=== PATIENT | female | born 1985 | race Caucasian/White ===

== ENCOUNTER 2020-05-21 06:51 | Inpatient (IN) | payer MEDICAID ==
[2020-05-21] MEDS ORDERED: Misoprostol 50 MCG (1/2 of 100 MCG) Tab VAG ONE (06:54)
[2020-05-21] MEDS ORDERED: Methylergonovine 0.2 MG/1 ML Amp IM PRN (08:16)
[2020-05-21] MEDS ORDERED: Misoprostol 200 MCG Tab RECTAL PRN (08:16)
[2020-05-21] MEDS ORDERED: Sodium Chloride 0.9% 10 ML Syringe FLUSH PRN (08:16)
[2020-05-21] MEDS ORDERED: ePHEDrine 50 MG/ML SDV IVPUSH PRN (08:20)
[2020-05-21] MEDS ORDERED: Lactated Ringers 1,000 ML IV ONE (08:20)
--- NOTE | 2020-05-21 08:28 | PCM.LDHP ---
L&D History of Present Illness - General Date of Service: 05/21/20 Admit Problem/Dx: Patient Status Order with Admit Dx/Problem 05/21/20 08:16 Patient Status [ADT] Routine Admission Diagnosis/Problem Admission Diagnosis/Problem Term Source of Information: Patient History Limitations: Reports: No Limitations - History of Present Illness Introduction:: 05/21/20 35 yo is here at 39 3/7 for planned induction of labor due to mild polyhydramnios. She is B pos, rubella immune, STI's all negative. Starting hgb 14.6. Category 1 tracing and BPP 8/8. PABLO 25. She is GBS negative. She is planning an epidural. She has had an uncomplicated other than the polyhydramnios diagnosed in the third trimester. She is having intermittent contractions that she does not feel, no leaking of fluid. Plan is to use pitocin for induction due to a ripe cervix. Timing/Duration: Reports: intermittent - Related Data Allergies/Adverse Reactions: Allergies Allergy/AdvReac Type Severity Reaction Status Date / Time No Known Allergies Allergy Verified 05/21/20 07:01 Home Medications: Home Meds Omeprazole 20 mg PO DAILY 04/24/20 [History] Vit #116/Iron/FA/Dha [ Formula-Dha Softgel] 1 cap PO DAILY 04/24/20 [History] Past Medical History [employer] History: Reports: : 1 Para: 0 LMP (Approximate): Social & Family History - Tobacco Use Smoking Status *Q: Never Smoker - Caffeine Use Caffeine Use: Reports: None - Recreational Drug Use Recreational Drug Use: No H&P Review of Systems - Review of Systems: Review Of Systems: See Below General: Reports: No Symptoms HEENT: Reports: No Symptoms Pulmonary: Reports: No Symptoms Cardiovascular: Reports: No Symptoms Gastrointestinal: Reports: No Symptoms Genitourinary: Reports: No Symptoms Musculoskeletal: Reports: No Symptoms Skin: Reports: No Symptoms Psychiatric: Reports: No Symptoms Neurological: Reports: No Symptoms Hematologic/Lymphatic: Reports: No Symptoms Immunologic: Reports: No Symptoms L&D Exam - Exam Exam: See Below - Vital Signs Vital Signs: Last Vital Signs Temp 37.0 C 05/21/20 07:22 Pulse 125 H 05/21/20 07:22 Resp 18 05/21/20 07:22 BP 131/69 05/21/20 07:22 Pulse Ox 94 L 05/21/20 07:22 Weight: 105.7 kg - OB Specific Contraction Intensity: Mild Movement: Active Heart Tones: Present Heart Tones per Min: 150 Heart Rate (FHR) Variability: Moderate (6-25 bmp) Presentation: Vertex Estimated Weight: 8 lb - Wood Score Wood Score Cervix Position: Midposition Wood Score Consistency: Soft Wood Score Effacement: 51-70% Wood Score Dilation: 3-4 cm Wood Score 's Station: -2 Wood Score Total: 8 - Exam General: Alert, Oriented HEENT: PERRLA, Conjunctiva Clear, EACs Clear, EOMI, Hearing Intact, Mucosa Moist & [place], Nares Patent, Normal Nasal Septum, Pupils Equal, Pupils Reactive Neck: Supple, Trachea Midline Lungs: Clear to Auscultation, Normal Respiratory Effort Cardiovascular: Regular Rate, Regular Rhythm GI/Abdominal Exam: Normal Bowel Sounds, Soft, Non-Tender, No Organomegaly, No Distention, No Abnormal Bruit, No Mass, Pelvis Stable Rectal Exam: Normal Exam, Normal Rectal Tone Genitourinary: Normal external exam, Normal bimanual exam, Cervical dilitation, Enlarged uterus. No: Vaginal bleeding Back Exam: Normal Inspection, Full Range of Motion Extremities: Normal Inspection, Normal Range of Motion, Non-Tender, No Pedal Edema, Normal Capillary Refill Skin: Warm, Dry, Intact Neurological: Cranial Nerves Intact, Reflexes Equal Bilateral Psychiatric: Alert, Normal Affect, Normal Mood - Patient Data Lab Results Last 24 hrs: Laboratory Results - last 24 hr 05/21/20 05/21/20 Range/Units 07:00 07:07 WBC 10.1 (4.5-11.0) K/uL RBC 5.09 (3.30-5.50) M/uL Hgb 14.6 (12.0-15.0) g/dL Hct 44.1 (36.0-48.0) % MCV 87 (80-98) fL MCH 29 (27-31) pg MCHC 33 (32-36) % Plt Count 230 (150-400) K/uL Neut % (Auto) 76 H (36-66) % Lymph % (Auto) 16 L (24-44) % [place] % (Auto) 7 H (2-6) % Eos % (Auto) 1 L (2-4) % Baso % (Auto) 0 (0-1) % Urine Color Yellow (YELLOW) Urine Appearance Cloudy A (CLEAR) Urine pH 7.0 (5.0-8.0) Ur Specific [place] 1.025 (1.008-1.030) Urine Protein Negative (NEGATIVE) mg/dL Urine Glucose (UA) Negative (NEGATIVE) mg/dL Urine Ketones Negative (NEGATIVE) mg/dL Urine Occult Blood Negative (NEGATIVE) Urine Nitrite Negative (NEGATIVE) Urine Bilirubin Negative (NEGATIVE) Urine Urobilinogen 0.2 (0.2-1.0) EU/dL Ur Leukocyte Esterase Moderate H (NEGATIVE) Urine RBC 0-5 (0-5) Urine WBC 5-10 H (0-5) Ur Epithelial Cells Moderate Amorphous Sediment Few Urine Bacteria Few Urine Mucus Occasional Result Diagrams: 05/21/20 07:07 - Problem List (1) Polyhydramnios affecting in third trimester SNOMED Code(s): 578671932, 006840962 ICD Code: O40.3XX0 - POLYHYDRAMNIOS, THIRD TRIMESTER, NOT APPLICABLE OR UNSP Status: Acute Current Visit: Yes (2) Term SNOMED Code(s): 27516412 ICD Code: Z34.90 - ENCNTR FOR SUPRVSN OF NORMAL , UNSP, UNSP TRIMESTER Status: Acute Current Visit: Yes (3) Encounter for induction of labor SNOMED Code(s): 282798011 ICD Code: Z34.90 - ENCNTR FOR SUPRVSN OF NORMAL , UNSP, UNSP TRIMESTER Status: Acute Current Visit: Yes Problem List Initiated/Reviewed/Updated: Yes Orders Last 24hrs: Active Orders 24 hr Category Date Time Status Patient Status [ADT] Routine ADT 05/21/20 08:16 Ordered Communication Order [RC] ASDIRECTED Care 05/21/20 08:16 Ordered Communication Order [RC] ASDIRECTED Care 05/21/20 08:21 Ordered Heart Tones [RC] PER UNIT ROUTINE Care 05/21/20 08:16 Ordered Non Stress Test [RC] Click to Edit Care 05/21/20 08:16 Ordered Insert Urinary Catheter [OM.PC] ASDIRECTED Care 05/21/20 08:30 Ordered Local Anesthetic Infusion Pump [RC] ASDIRECTED Care 05/21/20 08:21 Ordered Notify Provider Vital Signs [RC] PRN Care 05/21/20 08:18 Ordered Notify Provider [RC] PRN Care 05/21/20 08:16 Ordered PCEA Epidural [RC] ASDIRECTED Care 05/21/20 08:21 Ordered PCEA Epidural [RC] ASDIRECTED Care 05/21/20 08:21 Ordered Up ad Fabienne [RC] ASDIRECTED Care 05/21/20 08:16 Ordered Urinary Catheter Assessment [RC] ASDIRECTED Care 05/21/20 08:21 Ordered VTE/DVT Education [RC] Click to Edit Care 05/21/20 08:18 Ordered Vital Signs [RC] PER UNIT ROUTINE Care 05/21/20 08:16 Ordered Clear Liquid Diet [DIET] Diet 05/21/20 Breakfast Ordered BPP w NST [US] Routine Exams 05/21/20 06:54 Taken Lactated Ringers [Ringers, Lactated] 1,000 ml Med 05/21/20 08:20 Ordered IV .BOLUS Methylergonovine [Methergine] Med 05/21/20 08:16 Ordered 0.2 mg IM ONETIME PRN Oxytocin/Normal Saline [Pitocin in NS 20 Units/1,000 ML Med 05/21/20 08:30 Ordered ] 20 unit in 1,000 ml IV TITRATE Sodium Chloride 0.9% [Saline Flush] Med 05/21/20 08:16 Ordered 10 ml FLUSH ASDIRECTED PRN ePHEDrine [ePHEDrine sulfate] Med 05/21/20 08:20 Ordered 10 mg IVPUSH ASDIRECTED PRN miSOPROStoL [Cytotec] Med 05/21/20 08:16 Ordered 800 mcg RECTAL ONETIME PRN DVT/VTE Prophylaxis Reflex [OM.PC] Routine Oth 05/21/20 08:16 Ordered Epidural Catheter Management [OM.PC] Urgent Oth 05/21/20 08:21 Ordered Saline Lock Insert [OM.PC] Routine Oth 05/21/20 08:16 Ordered Resuscitation Status Routine Resus Stat 05/21/20 08:16 Ordered Medication Orders Ephedrine Sulfate (Ephedrine Sulfate) 10 mg IVPUSH ASDIRECTED PRN PRN Reason: Hypotension Lactated Ringer's (Ringers, Lactated) 1,000 mls @ 999 mls/hr IV .BOLUS ONE Stop: 05/21/20 09:20 Methylergonovine Maleate (Methergine) 0.2 mg IM ONETIME PRN PRN Reason: Other Misoprostol (Cytotec) 800 mcg RECTAL ONETIME PRN PRN Reason: Other Sodium Chloride (Saline Flush) 10 ml FLUSH ASDIRECTED PRN PRN Reason: Keep Vein Open Assessment/Plan Comment:: 05/21/20 Assessment: 35 yo here for planned induction of labor at 39 3/7 weeks for mild polyhydramnios Hgb 14.6 PABLO approx 25 SVE /-2 Plan: Risks of polyhydramnios are reviewed with patient including prolapsed cord risk with ROM Plan will be to do Pitocin induction and leave membranes intact until head is applied to cervix If SROM nurse to check right away Anticipate Surgery crew is in house today and are aware of the induction
--- NOTE | 2020-05-21 11:53 | US ---
BPP w NST INDICATION: polyhydraminos COMPARISON: None FINDINGS: Single live IUP in vertex position heart rate: 150 BPM. Biophysical profile score: 8/8. PABLO: 25.4 cm. IMPRESSION: Normal biophysical profile score of 8/8.
--- NOTE | 2020-05-21 12:08 | PCM.PNLD ---
Labor Progress Note - VS & Meds Vital Signs: Last Vital Signs Temp 36.3 C 05/21/20 10:30 Pulse 102 H 05/21/20 10:30 Resp 18 05/21/20 10:30 BP 116/79 05/21/20 10:30 Pulse Ox 99 05/21/20 10:30 Active Medications: Current Medications Ephedrine Sulfate (Ephedrine Sulfate) 10 mg IVPUSH ASDIRECTED PRN PRN Reason: Hypotension Oxytocin/Sodium Chloride (Pitocin In Ns 20 Units/1,000 Ml) 20 unit in 1,000 mls @ 6 mls/hr IV TITRATE ROB; Protocol Last Titration: 05/21/20 12:02 Dose: 5 munits/min, 15 mls/hr Documented by: Methylergonovine Maleate (Methergine) 0.2 mg IM ONETIME PRN PRN Reason: Other Misoprostol (Cytotec) 800 mcg RECTAL ONETIME PRN PRN Reason: Other Sodium Chloride (Saline Flush) 10 ml FLUSH ASDIRECTED PRN PRN Reason: Keep Vein Open Discontinued Medications Lactated Ringer's (Ringers, Lactated) 1,000 mls @ 999 mls/hr IV .BOLUS ONE Stop: 05/21/20 09:20 Misoprostol (Cytotec) 50 mcg VAG ONETIME ONE Stop: 05/21/20 06:55 Last Admin: 05/21/20 08:35 Dose: Not Given Documented by: - Uterine Contractions Uterine Monitoring Mode: External [place] Contraction Frequency (min): 2.5-4 Contraction Duration (sec): 40-80 Contraction Intensity: Mild to Moderate Uterine Resting Tone: Soft - Monitoring Monitor Mode: External Ultrasound Heart Rate (FHR) Variability: Moderate (6-25 bmp) Accelerations: Present, 15x15 Decelerations: None Strip Review: Category I - Vaginal Exam Dilation (cm): 3.5 Effacement (Percent): 75 Station: -2 Cervical Position: Midposition Sterile Vaginal Exam Performed By: Mónica Conklin - Labor Progress (Free Text) Labor Progress: 05/21/20 SVE 3.5/75/-2. The head is still slightly ballotable so no ROM was performed at this time. Continue to titrate Pitocin. Category 1 tracing. She is feeling some tightening but is still very comfortable.
--- NOTE | 2020-05-21 16:29 | PCM.PNLD ---
Labor Progress Note - VS & Meds Vital Signs: Last Vital Signs Temp 36.3 C 05/21/20 10:30 Pulse 102 H 05/21/20 10:30 Resp 18 05/21/20 10:30 BP 116/79 05/21/20 10:30 Pulse Ox 99 05/21/20 10:30 Active Medications: Current Medications Ephedrine Sulfate (Ephedrine Sulfate) 10 mg IVPUSH ASDIRECTED PRN PRN Reason: Hypotension Oxytocin/Sodium Chloride (Pitocin In Ns 20 Units/1,000 Ml) 20 unit in 1,000 mls @ 6 mls/hr IV TITRATE ROB; Protocol Last Titration: 05/21/20 16:07 Dose: 7 munits/min, 21 mls/hr Documented by: Methylergonovine Maleate (Methergine) 0.2 mg IM ONETIME PRN PRN Reason: Other Misoprostol (Cytotec) 800 mcg RECTAL ONETIME PRN PRN Reason: Other Sodium Chloride (Saline Flush) 10 ml FLUSH ASDIRECTED PRN PRN Reason: Keep Vein Open Discontinued Medications Lactated Ringer's (Ringers, Lactated) 1,000 mls @ 999 mls/hr IV .BOLUS ONE Stop: 05/21/20 09:20 Misoprostol (Cytotec) 50 mcg VAG ONETIME ONE Stop: 05/21/20 06:55 Last Admin: 05/21/20 08:35 Dose: Not Given Documented by: - Uterine Contractions Uterine Monitoring Mode: External [place] Contraction Frequency (min): 1.5-3 Contraction Duration (sec): 50-110 Contraction Intensity: Mild to Moderate Uterine Resting Tone: Soft - Monitoring Monitor Mode: External Ultrasound Heart Rate (FHR) Variability: Moderate (6-25 bmp) Accelerations: Present, 15x15 Decelerations: None Strip Review: Category I - Vaginal Exam Dilation (cm): 5 Effacement (Percent): 80 Station: -2 Cervical Position: Midposition Sterile Vaginal Exam Performed By: Mónica Conklin - Labor Progress (Free Text) Labor Progress: 05/21/20 Pitocin at 7 mu currently, contractions are regular and moderate to strong. SVE showed 5/80/-2 with the head well applied this check. She agrees to AROM and risks of prolapsed cord are reviewed. AROM performed with clear fluid. Head well applied. Category 1 strip. Planning epidural.
[2020-05-21] MEDS ORDERED: Ropivacaine 100 ML ONE (17:25)
--- NOTE | 2020-05-21 17:35 | PCM.PNLD ---
Labor Progress Note - VS & Meds Vital Signs: Last Vital Signs Temp 36.8 C 05/21/20 15:30 Pulse 88 05/21/20 15:30 Resp 18 05/21/20 10:30 BP 125/84 05/21/20 15:30 Pulse Ox 96 05/21/20 15:30 Active Medications: Current Medications Ephedrine Sulfate (Ephedrine Sulfate) 10 mg IVPUSH ASDIRECTED PRN PRN Reason: Hypotension Oxytocin/Sodium Chloride (Pitocin In Ns 20 Units/1,000 Ml) 20 unit in 1,000 mls @ 6 mls/hr IV TITRATE ROB; Protocol Last Titration: 05/21/20 16:07 Dose: 7 munits/min, 21 mls/hr Documented by: Methylergonovine Maleate (Methergine) 0.2 mg IM ONETIME PRN PRN Reason: Other Misoprostol (Cytotec) 800 mcg RECTAL ONETIME PRN PRN Reason: Other Sodium Chloride (Saline Flush) 10 ml FLUSH ASDIRECTED PRN PRN Reason: Keep Vein Open Discontinued Medications Lactated Ringer's (Ringers, Lactated) 1,000 mls @ 999 mls/hr IV .BOLUS ONE Stop: 05/21/20 09:20 Last Admin: 05/21/20 16:00 Dose: 999 mls/hr Documented by: Ropivacaine (Naropin 0.2%) Confirm Administered Dose 100 mls @ as directed .ROUTE .STK-MED ONE Stop: 05/21/20 17:26 Misoprostol (Cytotec) 50 mcg VAG ONETIME ONE Stop: 05/21/20 06:55 Last Admin: 05/21/20 08:35 Dose: Not Given Documented by: - Uterine Contractions Uterine Monitoring Mode: External [place] Contraction Frequency (min): 2-3 Contraction Duration (sec): 50-70 Contraction Intensity: Moderate Uterine Resting Tone: Soft - Monitoring Monitor Mode: External Ultrasound Heart Rate (FHR) Variability: Moderate (6-25 bmp) Accelerations: Present, 15x15 Decelerations: None Strip Review: Category I - Vaginal Exam Dilation (cm): 6 Effacement (Percent): 80 Station: -1 Cervical Position: Midposition Sterile Vaginal Exam Performed By: Mónica Conklin Vaginal Exam Comment: AROM, Clear fluid - Labor Progress (Free Text) Labor Progress: 05/21/20 One late deceleration, baby recovered with oxygen and rolling mother in less than 2 min. Giving fluid bolus. She just received epidural so could be due to this or due to cervical change and baby dropping lower. Other than the one deceleration we have had category 1 tracing. Continue to monitor. We will use the peanut ball and continue to rotate mothers position.
[2020-05-21] MEDS: Lactated Ringers 1,000 ML IV SCH ×2 (18:00→21:30)
[2020-05-21] MEDS ORDERED: Ondansetron 4 MG/2 ML SDV IVPUSH ONE (20:06)
[2020-05-21] MEDS ORDERED: Lactated Ringers 500 ML IV SCH (20:45)
--- NOTE | 2020-05-21 21:11 | PCM.PNLD ---
Labor Progress Note - VS & Meds Vital Signs: Last Vital Signs Temp 36.4 C 05/21/20 18:10 Pulse 102 H 05/21/20 19:00 Resp 18 05/21/20 18:10 BP 94/66 05/21/20 20:00 Pulse Ox 99 05/21/20 18:10 Active Medications: Current Medications Ephedrine Sulfate (Ephedrine Sulfate) 10 mg IVPUSH ASDIRECTED PRN PRN Reason: Hypotension Oxytocin/Sodium Chloride (Pitocin In Ns 20 Units/1,000 Ml) 20 unit in 1,000 mls @ 6 mls/hr IV TITRATE ROB; Protocol Last Titration: 05/21/20 20:05 Dose: 11 munits/min, 33 mls/hr Documented by: Lactated Ringer's (Ringers, Lactated) 1,000 mls @ 125 mls/hr IV ASDIRECTED ROB Last Admin: 05/21/20 18:00 Dose: 125 mls/hr Documented by: Methylergonovine Maleate (Methergine) 0.2 mg IM ONETIME PRN PRN Reason: Other Misoprostol (Cytotec) 800 mcg RECTAL ONETIME PRN PRN Reason: Other Sodium Chloride (Saline Flush) 10 ml FLUSH ASDIRECTED PRN PRN Reason: Keep Vein Open Discontinued Medications Lactated Ringer's (Ringers, Lactated) 1,000 mls @ 999 mls/hr IV .BOLUS ONE Stop: 05/21/20 09:20 Last Admin: 05/21/20 16:00 Dose: 999 mls/hr Documented by: Ropivacaine (Naropin 0.2%) Confirm Administered Dose 100 mls @ as directed .ROUTE .STK-MED ONE Stop: 05/21/20 17:26 Misoprostol (Cytotec) 50 mcg VAG ONETIME ONE Stop: 05/21/20 06:55 Last Admin: 05/21/20 08:35 Dose: Not Given Documented by: Ondansetron HCl (Zofran) 4 mg IVPUSH ONETIME ONE Stop: 05/21/20 20:07 Last Admin: 05/21/20 20:21 Dose: 4 mg Documented by: - Uterine Contractions Uterine Monitoring Mode: External [place] Contraction Frequency (min): 3-5 Contraction Duration (sec): 70-80 Contraction Intensity: Moderate Uterine Resting Tone: Soft - Monitoring Monitor Mode: External Ultrasound Heart Rate (FHR) Variability: Moderate (6-25 bmp) Accelerations: Present, 15x15 Decelerations: None Strip Review: Category I - Vaginal Exam Dilation (cm): 9 Effacement (Percent): 100 Station: -1 Cervical Position: Midposition Sterile Vaginal Exam Performed By: Mónica Conklin Vaginal Exam Comment: AROM, Clear fluid - Labor Progress (Free Text) Labor Progress: 05/21/20 Pt progressing nicely. Baby has had some variables and some early decelerations with contractions likely due to head pressure, changing positions and giving her a small fluid bolus. She is comfortable with her epidural. She is not feeling any pressure to push yet. Room is set up for delivery.
--- NOTE | 2020-05-21 23:06 | ANES ---
DATE OF SERVICE: 05/21/2020 INDICATIONS: Soha is a 35-year-old female, patient of Mónica Conklin in our Obstetrics unit. She is here today in our Obstetrics unit laboring. I was consulted during a prolonged stage II labor to consult patient for epidural placement. I discussed with her history as well as reviewed lab work, found no contraindication to epidural placement. Discussed with her risks and benefits and she was okay to proceed and consent was received. TECHNIQUE: I had her seated at the edge of the bed. Betadine prep x3 to lumbar region. Sterile drape was placed, 1% lidocaine skin wheal as well as deep at the L3-L4 region. A 17- gauge Tuohy was placed to loss of resistance. Negative CSF, negative heme, negative paresthesia. I inserted catheter to 12 cm, removed the needle. I gave a test dose of 3 mL of 1.5% lidocaine with 1:200,000 epinephrine with negative sequelae. Catheter was secured to her back. She was placed in supine position. I dosed her with 12 mL of 0.2% ropivacaine and began infusion of the same 12 mL of 0.2% ropivacaine. She tolerated the procedure quite well. Please refer to nursing notes for vital signs and neuro status, which were unchanged and within normal limits. I discussed the procedure and dosage with the nurses. Again, she tolerated procedure quite well. Carlos Phipps CRNA /[id number]
[2020-05-21] MEDS ORDERED: Ropivacaine 200 MG in Premix Bag 1 BAG EPIDUR SCH (23:45)
[2020-05-22] MEDS ORDERED: Oxytocin 10 Units/1 ML SDV ONE ×2 (01:13→01:31)
[2020-05-22] MEDS ORDERED: Propofol 200 MG/20 ML SDV ONE (01:20)
[2020-05-22] MEDS ORDERED: Succinylcholine 200 MG/10 ML MDV ONE (01:20)
[2020-05-22] MEDS ORDERED: cefOXitin 1 GM Vial ONE (01:25)
[2020-05-22] MEDS ORDERED: Rocuronium 50 MG/5 ML Vial ONE (01:27)
[2020-05-22] MEDS ORDERED: fentaNYL 250 MCG/5 ML SDV ONE ×2 (01:29→01:50)
[2020-05-22] MEDS ORDERED: Neostigmine Methylsulfate 1 MG/ML 5 ML Syringe ONE (01:30)
[2020-05-22] MEDS ORDERED: Glycopyrrolate 0.2 MG/ML 5 ML MDV ONE (01:30)
[2020-05-22] MEDS ORDERED: Sodium Chloride 0.9% 10 ML ONE (01:32)
[2020-05-22] MEDS ORDERED: cefOXitin 2 GM Vial ONE (01:32)
[2020-05-22] MEDS ORDERED: HYDROmorphone/Normal Saline 15 MG/30 ML PCA IV ONE (01:49)
[2020-05-22] MEDS ORDERED: HYDROmorphone/Normal Saline 15 MG/30 ML PCA IV PRN (01:57)
[2020-05-22] MEDS ORDERED: Naloxone 0.4 MG/ML SDV IV PRN (02:00)
[2020-05-22] MEDS ORDERED: hydrOXYzine HCL 100 MG/2 ML SDV IM ONE (02:01)
--- NOTE | 2020-05-22 02:02 | PCM.PNLD ---
Labor Progress Note - VS & Meds Vital Signs: Last Vital Signs Temp 36.4 C 05/21/20 18:10 Pulse 102 H 05/21/20 19:00 Resp 18 05/21/20 18:10 BP 99/85 05/21/20 22:30 Pulse Ox 99 05/21/20 18:10 Active Medications: Current Medications Ephedrine Sulfate (Ephedrine Sulfate) 10 mg IVPUSH ASDIRECTED PRN PRN Reason: Hypotension Oxytocin/Sodium Chloride (Pitocin In Ns 20 Units/1,000 Ml) 20 unit in 1,000 mls @ 6 mls/hr IV TITRATE ROB; Protocol Last Titration: 05/21/20 23:39 Dose: 12 munits/min, 36 mls/hr Documented by: Lactated Ringer's (Ringers, Lactated) 1,000 mls @ 125 mls/hr IV ASDIRECTED ROB Last Admin: 05/21/20 21:30 Dose: 125 mls/hr Documented by: Lactated Ringer's (Ringers, Lactated) 500 mls @ 500 mls/hr IV ASDIRECTED ROB Ropivacaine 200 mg/ Premix 100 mls @ 0 mls/hr EPIDUR ASDIRECTED ROB Last Admin: 05/22/20 00:00 Dose: 8 mls/hr Documented by: Methylergonovine Maleate (Methergine) 0.2 mg IM ONETIME PRN PRN Reason: Other Misoprostol (Cytotec) 800 mcg RECTAL ONETIME PRN PRN Reason: Other Sodium Chloride (Saline Flush) 10 ml FLUSH ASDIRECTED PRN PRN Reason: Keep Vein Open Discontinued Medications Cefoxitin Sodium (Mefoxin) Confirm Administered Dose 1 gm .ROUTE .STK-MED ONE Stop: 05/22/20 01:26 Cefoxitin Sodium (Mefoxin) Confirm Administered Dose 2 gm .ROUTE .STK-MED ONE Stop: 05/22/20 01:33 Fentanyl (Sublimaze) Confirm Administered Dose 250 mcg .ROUTE .STK-MED ONE Stop: 05/22/20 01:30 Glycopyrrolate (Robinul) Confirm Administered Dose 1 mg .ROUTE .STK-MED ONE Stop: 05/22/20 01:31 Lactated Ringer's (Ringers, Lactated) 1,000 mls @ 999 mls/hr IV .BOLUS ONE Stop: 05/21/20 09:20 Last Admin: 05/21/20 16:00 Dose: 999 mls/hr Documented by: Ropivacaine (Naropin 0.2%) Confirm Administered Dose 100 mls @ as directed .ROUTE .STK-MED ONE Stop: 05/21/20 17:26 Sodium Chloride (Normal Saline) Confirm Administered Dose 10 mls @ as directed .ROUTE .STK-MED ONE Stop: 05/22/20 01:33 Misoprostol (Cytotec) 50 mcg VAG ONETIME ONE Stop: 05/21/20 06:55 Last Admin: 05/21/20 08:35 Dose: Not Given Documented by: Neostigmine Methylsulfate (Neostigmine) Confirm Administered Dose 5 mg .ROUTE .STK-MED ONE Stop: 05/22/20 01:31 Ondansetron HCl (Zofran) 4 mg IVPUSH ONETIME ONE Stop: 05/21/20 20:07 Last Admin: 05/21/20 20:21 Dose: 4 mg Documented by: Oxytocin (Pitocin) Confirm Administered Dose 10 unit .ROUTE .STK-MED ONE Stop: 05/22/20 01:14 Oxytocin (Pitocin) Confirm Administered Dose 10 unit .ROUTE .STK-MED ONE Stop: 05/22/20 01:32 Propofol (Diprivan 20 Ml) Confirm Administered Dose 200 mg .ROUTE .STK-MED ONE Stop: 05/22/20 01:21 Rocuronium [place] (Zemuron) Confirm Administered Dose 50 mg .ROUTE .STK-MED ONE Stop: 05/22/20 01:28 Succinylcholine Chloride (Quelicin) Confirm Administered Dose 200 mg .ROUTE .STK-MED ONE Stop: 05/22/20 01:21 - Uterine Contractions Uterine Monitoring Mode: External [place] Contraction Frequency (min): 2.5-4 Contraction Duration (sec): 80-110 Contraction Intensity: Moderate to Strong Uterine Resting Tone: Soft - Monitoring Monitor Mode: External Ultrasound Heart Rate (FHR) Baseline: 170 Heart Rate (FHR) Variability: Moderate (6-25 bmp) Decelerations: Variable Strip Review: Category II - Vaginal Exam Dilation (cm): 10 Effacement (Percent): 100 Station: 0 Cervical Position: Midposition Sterile Vaginal Exam Performed By: Mónica Conklin - Labor Progress (Free Text) Labor Progress: 05/22/20 Patient pushed in several positions including Kathleen, high fowlers, right side, left side, tug of war and was unable to move baby down past pubic bone. Baby was not in position for a vacuum application due to station being too high. Baseline noticeably changed around midnight and quickly became tachycardic with recurrent variable decelerations. Despite maternal best efforts of pushing baby seemed very stuck and there was no progression in the second stage. Several efforts were made for intrauterine resuscitation including fluid bolus, oxygen, position changes, resting during contraction, decreasing pitocin, and ultimately turning pitocin off. Patient pushed for about two hours with little to no decent of station. Due to maternal fatigue, arrest of progress in second stage, and tachycardia and stress OR was called at 0038 for an emergent section. Myself and nurses brought her to OR and began prepping her at 0046. Time of delivery was 0130. See operative note for further on mother and baby's chart for further on baby. section was reviewed with mother and father and they both agreed and consent was signed.
[2020-05-22] MEDS ORDERED: Ondansetron 4 MG/2 ML SDV IVPUSH ONE (02:35)
[2020-05-22] MEDS ORDERED: hydrOXYzine HCL 100 MG/2 ML SDV IM PRN (03:23)
[2020-05-22] MEDS ORDERED: Ondansetron 4 MG/2 ML SDV IVPUSH PRN (03:23)
[2020-05-22] MEDS: Ibuprofen 600 MG Tab PO SCH ×5 (04:16→21:07)
[2020-05-22] MEDS: Acetaminophen 500 MG Tab PO SCH ×3 (06:22→19:19)
[2020-05-22] MEDS ORDERED: cefOXitin 2 GM in Sodium Chloride 0.9% 50 ML IV SCH (07:00)
[2020-05-22] MEDS: Dextrose 5%-Lactated Ringers 1,000 ML IV SCH ×2 (07:19→14:34)
[2020-05-22] MEDS: cefOXitin 2 GM in Sodium Chloride 0.9% 50 ML IV SCH ×3 (07:47→20:00)
--- NOTE | 2020-05-22 10:01 | PN ---
DATE OF SERVICE: 05/22/2020 SUBJECTIVE: Soha had a . Pain is controlled. Lynn catheter in. Vital signs stable. Continues to have the IV Pitocin running. She has no questions or concerns. REVIEW OF SYSTEMS: Remainder of review of systems negative for any pertinent positives and negatives. OBJECTIVE: GENERAL: Soha Johnston is a pleasant 35-year-old female. She is sleepy, but orientated. VITAL SIGNS: TPR at 0722; 98.2, 117, 20. Blood pressure 122/71. HEENT: Negative. NECK: Supple. HEART: Regular rate and rhythm. LUNGS: Clear. ABDOMEN: Dressings dry and intact. EXTREMITIES: With trace peripheral edema. ASSESSMENT: , 05/22/2020. PLAN: 1. Leave Lynn catheter. 2. Continue PLASTIC SHAPER for pain control. 3. Advance diet as tolerated. 4. We will evaluate p.r.n. or in a.m. Shy Bernal PA-C /[id number]
[2020-05-22] MEDS ORDERED: Dextrose 5%-Lactated Ringers 1,000 ML IV SCH (14:45)
[2020-05-22] MEDS ORDERED: Acetaminophen/oxyCODONE 325-5 MG Tab PO PRN (15:37)
[2020-05-22] MEDS ORDERED: oxyCODONE 5 MG Tab PO PRN (15:47)
[2020-05-23] MEDS: Acetaminophen 500 MG Tab PO SCH ×4 (00:15→17:23)
[2020-05-23] MEDS: cefOXitin 2 GM in Sodium Chloride 0.9% 50 ML IV SCH ×2 (02:08→09:44)
[2020-05-23] MEDS: Ibuprofen 600 MG Tab PO SCH ×4 (05:21→21:19)
[2020-05-23] MEDS ORDERED: Lanolin 100% Cream 40 GM Tube TOP PRN (07:48)
[2020-05-23] MEDS ORDERED: Witch Hazel Medicated Pads 100/Jar TOP PRN (07:48)
[2020-05-23] MEDS: Benzocaine 20% Top Spray 56 GM Bottle TOP SCH ×4 (08:35→17:24)
[2020-05-23] MEDS: Bisacodyl 5 MG Tab PO SCH ×2 (08:37→20:35)
[2020-05-23] MEDS: Docusate Sodium 100 MG Cap PO SCH ×2 (08:37→20:35)
--- NOTE | 2020-05-23 10:20 | PN ---
DATE OF SERVICE: 05/23/2020 SUBJECTIVE: Soha is postoperative day #1. She continues to have a Lynn catheter. Her pain has been controlled. Afebrile. Oral intake 2000. Urine output 3350. She has no other concerns or questions today. OBJECTIVE: GENERAL: Soha is a pleasant 35-year-old female. She is alert and orientated, sitting in chair. VITAL SIGNS: TPR at 0524, 97, 196, 18. Blood pressure is 113/74. HEENT: Negative. NECK: Supple. HEART: Regular rate and rhythm. LUNGS: Clear. ABDOMEN: Dressings dry and intact. Abdominal binder is on. EXTREMITIES: With trace peripheral edema. ASSESSMENT: , 05/22/2020. Surgeon: José Manuel Santamaria MD. PLAN: 1. Discontinue Lynn catheter. 2. May shower. 3. Colace 100 mg p.o. b.i.d. 4. Dulcolax 10 mg tablets b.i.d. p.o. until the patient has bowel movements. 5. Continue use of incentive spirometer. 6. We will evaluate p.r.n. or in a.m. Shy Bernal PA-C /[id number]
[2020-05-23] MEDS ORDERED: Benzocaine 20% Top Spray 56 GM Bottle TOP PRN (17:25)
[2020-05-24] MEDS: Acetaminophen 500 MG Tab PO SCH ×2 (00:07→06:05)
[2020-05-24] MEDS: Ibuprofen 600 MG Tab PO SCH ×2 (06:04→09:26)
--- NOTE | 2020-05-24 08:55 | DISCH ---
ADMISSION DIAGNOSES: Term , failed induction, emergent due to tachycardia. DISCHARGE DIAGNOSIS: section on 05/22/2020 with delivery of viable female. HISTORY: Soha Johnston is a pleasant 35-year-old female who presented for a planned induction at 39 and 3/7 weeks due to mild polyhydramnios. Throughout the induction, baby became tachycardic, emergency was called. She had her on 05/22/2020. There were no complications. Postoperative later that day, she was started on a regular diet. 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 Lynn catheter was left. On postoperative day #2, Lynn catheter was discontinued. She had already been started on oral pain medication, up, ambulating. Vital signs remained stable. Pain was controlled with Tylenol and ibuprofen, and she was able to be discharged without any complications on 05/24/2020. PHYSICAL EXAMINATION: GENERAL: Soha is a pleasant 35-year-old female. She is alert and orientated. VITAL SIGNS: Height 5 feet 6 inches, weight is 233. TPR at 07:40, 96.5; 99; 16; blood pressure 129/74. HEENT: Negative. NECK: Supple. HEART: Regular rate and rhythm. LUNGS: Clear. ABDOMEN: Midline low abdominal incision. Aquacel dressings on. Incision is stapled. Abdominal binder is on. EXTREMITIES: With trace peripheral edema. DISPOSITION: Discharged to home. CONDITION: Stable and improving. FOLLOWUP APPOINTMENT: Shy Bernal PA-C, on 05/28/2020 at 10:15 a.m. at [facility]. Appointment to be made for followup with Mary Larson CNM. HOME MEDICATIONS: 1. Colace 100 mg oral b.i.d., #60. 2. Ibuprofen 600 mg 4 times daily #40 for pain. 3. Tylenol 1000 mg every 6 hours p.r.n. pain #100. 4. She was sent home with lanolin to use as directed and Benzo anesthetic 20% topical spray to use up to 5 times a day. 5. To resume home medication of vitamin 1 capsule daily and omeprazole. DIET: Usual diet as tolerated. Drink 8 to 10 glasses of water a day. ACTIVITY: No lifting greater than 10 pounds and no more than baby and car seat for 6 weeks. Driving: Do not drive for 1 week and while on pain medication. Shower/bathing: May shower. No tub bathing, swimming for 6 weeks. DISCHARGE INSTRUCTIONS: Notify provider if any fever, increased pain, swelling, redness, nausea, vomiting. Keep site clean and dry. Wear abdominal binder for 6 weeks and then as tolerated. SPECIAL INSTRUCTION: Use incentive spirometer 10 times every hour while awake.
[2020-05-24] MEDS: Bisacodyl 5 MG Tab PO SCH (09:26)
[2020-05-24] MEDS: Docusate Sodium 100 MG Cap PO SCH (09:26)
--- NOTE | 2020-05-28 13:37 | OR ---
DATE OF PROCEDURE: 05/22/2020 SURGEON: José Manuel Santamaria MD PREOPERATIVE DIAGNOSIS: Term with failure to progress with sustained tachycardia. POSTOPERATIVE DIAGNOSIS: Term with failure to progress with sustained tachycardia. OPERATIVE PROCEDURE: section. ANESTHESIA: General. PEDIATRIC SURGEON: Mónica Conklin CNM INDICATIONS FOR PROCEDURE: This is a 35-year-old admitted with for induction. She was noted to have polyhydramnios and has been in labor through much of the day. As labor progressed this evening, the patient was noted to have developed sustained tachycardia and the decision was made to proceed with urgent cesarian section. Potential risks of the procedure were reviewed with the patient and and they wished to proceed. DETAILS OF PROCEDURE: The patient was taken to the operating room. A Lynn catheter was inserted and a roll placed underneath the right hip. The abdomen was then prepped and draped. At that point, general anesthetic was induced and a midline incision from the umbilicus down to the pubis was made and carried down through full-thickness abdominal wall. The peritoneal reflection of the bladder on the uterus was then divided and the bladder reflected downward. A transverse uterine incision was then made and carried down through the full-thickness of the uterus and the membranes were then . The baby presented with close to an occiput posterior position with the nose facing anteriorly, just slightly leftward. A viable female was delivered through vertex presentation without further difficulties. The cord was clamped and cut and routine care was given off the field per Mónica Conklin CNM. The baby's condition overall looked to be quite good and the placenta and membranes were then delivered without difficulty. The patient was given IV cefoxitin and IV Pitocin and intrauterine Pitocin. Good uterine contraction was noted. The uterus was then closed with 2 layers of 2-0 Vicryl stitch as was the peritoneal reflection of the bladder onto the uterus. The midline peritoneum was approximated with a #2 Vicryl stitch as was the anterior fascia. The subcutaneous tissue was then approximated with 2 layers of 3-0 and 4-0 Vicryl and the skin with ama. The patient was taken to the recovery room in satisfactory condition. There were no evident complications. Per the ACOG guidelines, Mónica Conklin CNM was required as an licensed physical therapy assistant in this case. José Manuel Santamaria MD /[id number]
== END 2020-05-24 11:53 | disposition home or self-care (01) | DRG 786 ==
LOC: JP.OB 06:51 → OBSVTOIN 05-22 01:30 → JP.MS 05-22 01:57
PROVIDERS: ADMIT Advanced Practice Midwife; ATTEND Surgery
PROC: 10D00Z1 Extraction of Products of Conception, Low, Open Approach (ICD-10-PCS; principal; 2020-05-22)
PROC: 10907ZC Drainage of Amniotic Fluid, Therapeutic from Products of Conception, Via Natural or Artificial Opening (ICD-10-PCS; 2020-05-22)
PROC: 3E0R3BZ Introduction of Anesthetic Agent into Spinal Canal, Percutaneous Approach (ICD-10-PCS; 2020-05-22)
PROC: 00HU33Z Insertion of Infusion Device into Spinal Canal, Percutaneous Approach (ICD-10-PCS; 2020-05-22)
DX: O40.3XX0 Polyhydramnios, third trimester, not applicable or unspecified (principal); O41.1230 Chorioamnionitis, third trimester, not applicable or unspecified; Z3A.39 39 weeks gestation of pregnancy; Z37.0 Single live birth; O76 Abnormality in fetal heart rate and rhythm complicating labor and delivery; O62.1 Secondary uterine inertia
CPT/HCPCS: 36415; 51702; 59409; 76818; 76818-26; 81001; 85025; 85027; 88307; A9270-GY; J0330; J0694; J1170; J2405; J2590; J2704; J2710; J2795; J3010; J3410; J3490; J7050; J7120; J7121

== ENCOUNTER 2020-06-08 11:00 | Inpatient (IN) | payer MEDICAID ==
[2020-06-08] MEDS ORDERED: Sodium Chloride 0.9% 1,000 ML IV ONE (11:41)
[2020-06-08] MEDS ORDERED: Ketorolac 30 MG/ML SDV IVPUSH ONE (11:42)
[2020-06-08] MEDS ORDERED: Ondansetron 4 MG/2 ML SDV IVPUSH ONE (11:42)
[2020-06-08] MEDS ORDERED: Sodium Chloride 0.9% 10 ML Syringe FLUSH PRN ×2 (11:42→12:15)
[2020-06-08] MEDS ORDERED: Iopamidol 612 MG/ML 150 ML Bottle IV SCH (12:15)
--- NOTE | 2020-06-08 12:52 | CT ---
Abdomen Pelvis w Cont CLINICAL HISTORY: Lower abdominal pain COMPARISON: None. TECHNIQUE: Transverse scans were obtained from the base of the lungs to the pubic symphysis following oral contrast and IV infusion of contrast.Auto dosage reduction and iterative reconstructiontechniques employed. FINDINGS: The lung bases are clear. There is free intraperitoneal air in the liver and epigastric region. Patient is and apparently post , date unknown. There is fluid and debris and air within the endometrial cavity. There is free fluid in the pelvis. The liver contains a 1.4 cm low-attenuation focus in this is nonspecific. The gallbladder has a normal contour. The spleen has a normal size and shape. The pancreas shows no mass or inflammatory change. The adrenal glands appear normal bilaterally . The kidneys shows no mass, stones or hydronephrosis. The ureters have a normal course and contour. The aorta is free of aneurysm.There is no suspicious retroperitoneal adenopathy. Small intestinal configuration is nonacute. There is gas and feces throughout the colon. The appendix is not definitively seen. There is some mild prominence of the adnexa bilaterally. There are small stippled the collections of air. This also likely relates to previous . Bladder has normal contour. IMPRESSION: Recent , date unknown. There is moderate fluid and debris and air in the endometrial cavity. There is a small amount of free intraperitoneal air and fluid. This would be relatively normal immediate post so, chronology is relevant. Postoperative infection is not excluded. Findings were discussed with Dr. Lazo at the time of this dictation at 12:45 PM
--- NOTE | 2020-06-08 13:00 | EDM.PDOC ---
<GuilleKatlin M - Last Filed: 06/08/20 12:55> ED HPI GENERAL MEDICAL PROBLEM - General Chief Complaint: Abdominal Pain Stated Complaint: MEDICAL Time Seen by Provider: 06/08/20 11:25 Source of Information: Reports: Patient, RN, RN Notes Reviewed, Significant Other History Limitations: Reports: No Limitations - History of Present Illness INITIAL COMMENTS - FREE TEXT/NARRATIVE: Pt here with spouse. Post op C section 05-22-20. Pt indicated she received a horizontal and vertical incision. Sent over from clinic for evaluation of abd pain and multiple syncopal events this morning. Denies, fever, SOB, or night sweats. Does c/o chills. Indicates a 3 day round of ABX was given shortly after delivering for infection. Denies dysuria, or urgency. BM this am. Pain is 7/10 RUQ and radiates to low back. Pt has been taking Tylenol and Ibuprofen. Onset: Today, Sudden Onset Date: 06/08/20 Onset Time: 07:30 - Related Data Allergies Allergy/AdvReac Type Severity Reaction Status Date / Time No Known Allergies Allergy Verified 06/08/20 16:21 Home Meds: Home Meds Omeprazole 20 mg PO DAILY 04/24/20 [History] Vit #116/Iron/FA/Dha [ Formula-Dha Softgel] 1 cap PO DAILY 04/24/20 [History] Acetaminophen [Tylenol Extra Strength] 1,000 mg PO Q6H #100 tablet 05/24/20 [Rx] Docusate Sodium [Colace] 100 mg PO BID #60 cap 05/24/20 [Rx] Ibuprofen [Motrin] 600 mg PO QID #40 tablet 05/24/20 [Rx] Lanolin [Lansinoh HPA] 0 gm TOP ASDIRECTED PRN tube 05/24/20 [Rx] ondansetron HCL [Ondansetron HCl] 1 tab PO Q8HR PRN 06/08/20 [History] Past Medical History Cardiovascular History: Reports: None Respiratory History: Reports: None Gastrointestinal History: Reports: GERD Other Gastrointestinal History: omeprazole during Genitourinary History: Reports: None SOUND RECORDIST History: Reports: Musculoskeletal History: Reports: None Neurological History: Reports: None Psychiatric History: Reports: None Endocrine/Metabolic History: Reports: None Hematologic History: Reports: None Immunologic History: Reports: None Oncologic (Cancer) History: Reports: None Dermatologic History: Reports: None - Infectious Disease History Infectious Disease History: Reports: Chicken Pox - Past Surgical History Head Surgeries/Procedures: Reports: None HEENT Surgical History: Reports: Other (See Below) Other HEENT Surgeries/Procedures: wisdom teeth removal Cardiovascular Surgical History: Reports: None Respiratory Surgical History: Reports: None GI Surgical History: Reports: None Female Surgical History: Reports: None Endocrine Surgical History: Reports: None Neurological Surgical History: Reports: None Musculoskeletal Surgical History: Reports: None Dermatological Surgical History: Reports: None Social & Family History - Family History Family Medical History: Noncontributory - Tobacco Use Tobacco Use Status *Q: Never Tobacco User - Caffeine Use Caffeine Use: Reports: None ED ROS GENERAL - Review of Systems Review Of Systems: See Below Constitutional: Reports: Chills, Decreased Appetite HEENT: Reports: No Symptoms Respiratory: Reports: No Symptoms Cardiovascular: Reports: No Symptoms Endocrine: Reports: No Symptoms GI/Abdominal: Reports: Abdominal Pain, Constipation, Nausea : Reports: Pain Musculoskeletal: Reports: No Symptoms Skin: Reports: No Symptoms Neurological: Reports: No Symptoms Psychiatric: Reports: No Symptoms Hematologic/Lymphatic: Reports: No Symptoms Immunologic: Reports: No Symptoms ED EXAM, GI/ABD - Physical Exam Exam: See Below Exam Limited By: No Limitations General Appearance: Alert, WD/WN, Mild Distress Head: Normocephalic Respiratory/Chest: Lungs Clear Cardiovascular: Regular Rate, Rhythm, No Murmur, No Rub GI/Abdominal Exam: Guarding, Tender (Female) Exam: Deferred Rectal (Female) Exam: Deferred Neurological: Alert, Oriented Psychiatric: Normal Affect, Normal Mood Departure - Departure Disposition: Admitted As Inpatient 66 Clinical Impression: Endometritis following delivery Abdominal pain Qualifiers: Abdominal location: right lower quadrant Qualified Code(s): R10.31 - Right lower quadrant pain - Discharge Information Sepsis Event Note (ED) - Evaluation Sepsis Screening Result: No Definite Risk <James Lazo - Last Filed: 06/08/20 17:19> ED HPI GENERAL MEDICAL PROBLEM 8 Pain Score (Numeric/FACES): 4 Course - Vital Signs Last Recorded V/S: Last Vital Signs Temp 96.6 F L 06/08/20 16:00 Pulse 106 H 06/08/20 17:03 Resp 12 06/08/20 17:03 BP 98/69 06/08/20 17:03 Pulse Ox 94 L 06/08/20 16:45 - Orders/Labs/Meds Orders: Active Orders 24 hr Category Date Time Status Peripheral IV Care [RC] . DIRECTED Care 06/08/20 11:42 Active Pelvis Non OB Comp [US] Stat Exams 06/08/20 Taken VL Duplex Abd Pel Ret Ltd [US] Stat Exams 06/08/20 Taken URINALYSIS W/MICROSCOPIC [UA W/MICROSCOPIC] [URIN] Stat Lab 06/08/20 11:43 Ordered Peripheral IV Insertion Adult [OM.PC] Routine Oth 06/08/20 11:42 Ordered Medication Orders Hydrocodone Bitart/Acetaminophen ([facility] 325-5 Mg) 1 - 2 tab PO Q4H PRN PRN Reason: Pain Last Admin: 06/08/20 16:11 Dose: 1 tab Documented by: URBAN Hydromorphone HCl (Dilaudid) 0.5 mg IVPUSH Q2H PRN PRN Reason: MODERATE PAIN Hydromorphone HCl (Dilaudid) 1 mg IV Q2H PRN PRN Reason: SEVERE PAIN Aztreonam 1 gm/ Sodium (Chloride) 50 mls @ 100 mls/hr IV Q8H ROB Meropenem 500 mg/ Sodium (Chloride) 50 mls @ 100 mls/hr IV Q6H ROB Dextrose/Lactated Ringer's (Dextrose 5%-Lactated Ringers) 1,000 mls @ 125 mls/hr IV ASDIRECTED ROB Last Admin: 06/08/20 16:11 Dose: 125 mls/hr Documented by: URBAN Ondansetron HCl (Zofran) 4 mg IVPUSH Q4H PRN PRN Reason: Nausea Last Admin: 06/08/20 16:57 Dose: 4 mg Documented by: URBAN Labs: Laboratory Tests 06/08/20 06/08/20 06/08/20 Range/Units 11:55 11:55 13:36 WBC 18.9 H (4.5-11.0) K/uL RBC 5.27 (3.30-5.50) M/uL Hgb 14.8 D (12.0-15.0) g/dL Hct 45.9 (36.0-48.0) % MCV 87 (80-98) fL MCH 28 (27-31) pg MCHC 32 (32-36) % Plt Count 339 (150-400) K/uL Neut % (Auto) 91 H (36-66) % Lymph % (Auto) 5 L (24-44) % [place] % (Auto) 4 (2-6) % Eos % (Auto) 0 L (2-4) % Baso % (Auto) 0 (0-1) % Sodium 139 L (140-148) mmol/L Potassium 3.7 (3.6-5.2) mmol/L Chloride 103 (100-108) mmol/L Carbon Dioxide 27 (21-32) mmol/L Anion Gap 12.7 (5.0-14.0) mmol/L BUN 18 (7-18) mg/dL Creatinine 1.0 (0.6-1.0) mg/dL Est Cr Clr Drug Dosing 73.51 mL/min Estimated GFR (MDRD) > 60 (>60) Glucose 111 H (74-106) mg/dL Calcium 9.3 (8.5-10.1) mg/dL Total Bilirubin 0.3 (0.2-1.0) mg/dL AST 18 (15-37) U/L ALT 26 (12-78) U/L Alkaline Phosphatase 125 H (46-116) U/L Total Protein 7.9 (6.4-8.2) g/dL Albumin 3.4 (3.4-5.0) g/dL Globulin 4.5 H (2.3-3.5) g/dL Albumin/Globulin Ratio 0.8 L (1.2-2.2) SARS-CoV-2 RNA (LADAN) Negative (NEGATIVE) Meds: Medications Generic Name Dose Route Start Last Admin Trade Name Freq PRN Reason Stop Dose Admin Hydrocodone Bitart/Acetaminophen 1 - 2 tab 06/08/20 15:50 06/08/20 16:11 [facility] 325-5 Mg PO 1 tab Q4H PRN Administration Pain Hydromorphone HCl 0.5 mg 06/08/20 16:00 Dilaudid IVPUSH Q2H PRN MODERATE PAIN Hydromorphone HCl 1 mg 06/08/20 16:00 Dilaudid IV Q2H PRN SEVERE PAIN Aztreonam 1 gm/ Sodium 50 mls @ 100 mls/hr 06/08/20 23:30 Chloride IV Q8H ROB Meropenem 500 mg/ Sodium 50 mls @ 100 mls/hr 06/08/20 20:00 Chloride IV Q6H ROB Dextrose/Lactated Ringer's 1,000 mls @ 125 mls/hr 06/08/20 16:00 06/08/20 16:11 Dextrose 5%-Lactated Ringers IV 125 mls/hr ASDIRECTED ROB Administration Ondansetron HCl 4 mg 06/08/20 15:49 06/08/20 16:57 Zofran IVPUSH 4 mg Q4H PRN Administration Nausea Discontinued Medications Generic Name Dose Route Start Last Admin Trade Name Freq PRN Reason Stop Dose Admin Dexamethasone Confirm 06/08/20 14:21 Dexamethasone Administered 06/08/20 14:22 Dose 4 mg .ROUTE .STK-MED ONE Fentanyl Confirm 06/08/20 14:21 Sublimaze Administered 06/08/20 14:22 Dose 250 mcg .ROUTE .STK-MED ONE Glycopyrrolate Confirm 06/08/20 14:21 Robinul Administered 06/08/20 14:22 Dose 1 mg .ROUTE .STK-MED ONE Sodium Chloride 1,000 mls @ 999 mls/hr 06/08/20 11:41 06/08/20 12:41 Normal Saline IV 06/08/20 12:41 999 mls/hr .BOLUS ONE Administration Sodium Chloride 82 mls @ 3 mls/sec 06/08/20 12:15 06/08/20 12:25 Normal Saline IV 06/08/20 12:16 3 mls/sec ONETIME ONE Administration Lactated Ringer's 1,000 mls @ 200 mls/hr 06/08/20 14:15 06/08/20 14:19 Ringers, Lactated IV 200 mls/hr ASDIRECTED ROB Administration Meropenem 500 mg/ Sodium 50 mls @ 100 mls/hr 06/08/20 14:15 06/08/20 14:19 Chloride IV 06/08/20 14:44 100 mls/hr NOW ONE Administration Aztreonam 1 gm/ Sodium 50 mls @ 100 mls/hr 06/08/20 15:30 06/08/20 15:40 Chloride IV 06/08/20 15:59 100 mls/hr ONETIME ONE Administration Iopamidol 140 ml 06/08/20 12:15 06/08/20 12:25 Isovue-300 (61%) IV 140 ml . DIRECTED ROB Administration Ketorolac Tromethamine 30 mg 06/08/20 11:42 Toradol IVPUSH 06/08/20 11:43 ONETIME ONE Meropenem Confirm 06/08/20 15:04 06/08/20 15:06 Merrem Administered 06/08/20 15:05 500 mg Dose Administration 500 mg .ROUTE .STK-MED ONE Neostigmine Methylsulfate Confirm 06/08/20 14:21 Neostigmine Administered 06/08/20 14:22 Dose 5 mg .ROUTE .STK-MED ONE Ondansetron HCl 4 mg 06/08/20 11:42 06/08/20 12:02 Zofran IVPUSH 06/08/20 11:43 4 mg ONETIME ONE Administration Ondansetron HCl Confirm 06/08/20 14:21 Zofran Administered 06/08/20 14:22 Dose 4 mg .ROUTE .STK-MED ONE Propofol Confirm 06/08/20 14:21 Diprivan 20 Ml Administered 06/08/20 14:22 Dose 200 mg .ROUTE .STK-MED ONE Rocuronium [place] Confirm 06/08/20 14:21 Zemuron Administered 06/08/20 14:22 Dose 50 mg .ROUTE .STK-MED ONE Sodium Chloride 10 ml 06/08/20 11:42 Saline Flush FLUSH ASDIRECTED PRN Keep Vein Open Sodium Chloride 10 ml 06/08/20 12:15 06/08/20 12:25 Saline Flush FLUSH 10 ml ONETIME PRN Administration PER RADIOLOGY PROTOCOL Succinylcholine Chloride Confirm 06/08/20 14:21 Quelicin Administered 06/08/20 14:22 Dose 200 mg .ROUTE .STK-MED ONE - Re-Assessments/Exams Free Text/Narrative Re-Assessment/Exam: 06/08/20 14:06 Agree with above history and assessment. Peritoneal findings are present in the right lower quadrant. CT of the abdomen and pelvis showed free fluid, and a combination of debris and air in the endometrial cavity as well as in the pelvis. An ultrasound confirmed good blood flow to both ovaries so surgical consultation was obtained for possible endometritis, retention of products, or intra peritoneal infection. Dr. Santamaria agreed to take the patient in for a D&C and IV antibiotics. Departure - Departure Time of Disposition: 14:43 Sepsis Event Note (ED) - Focused Exam Vital Signs: Vital Signs Temp Pulse Resp BP Pulse Ox 06/08/20 11:26 97.9 F 91 16 104/57 L 97 06/08/20 11:16 97.9 F 91 16 104/57 L 97 - My Orders Last 24 Hours: My Active Orders 06/08/20 Pelvis Non OB Comp [US] Stat VL Duplex Abd Pel Ret Ltd [US] Stat - Assessment/Plan Last 24 Hours: My Active Orders 06/08/20 Pelvis Non OB Comp [US] Stat VL Duplex Abd Pel Ret Ltd [US] Stat Attestation - Student - Attestation Statement Attestation Statement: I personally performed or re-performed the physical examination and medical decision making. I have verified all student documentation or findings, including history, physical exam and/or medical decision making.
[2020-06-08] MEDS ORDERED: Lactated Ringers 1,000 ML IV SCH (14:15)
[2020-06-08] MEDS ORDERED: Meropenem 500 MG in Sodium Chloride 0.9% 50 ML IV ONE (14:15)
[2020-06-08] MEDS ORDERED: fentaNYL 250 MCG/5 ML SDV ONE (14:21)
[2020-06-08] MEDS ORDERED: Propofol 200 MG/20 ML SDV ONE (14:21)
[2020-06-08] MEDS ORDERED: Neostigmine Methylsulfate 1 MG/ML 5 ML Syringe ONE (14:21)
[2020-06-08] MEDS ORDERED: Rocuronium 50 MG/5 ML Vial ONE (14:21)
[2020-06-08] MEDS ORDERED: Glycopyrrolate 0.2 MG/ML 5 ML MDV ONE (14:21)
[2020-06-08] MEDS ORDERED: Ondansetron 4 MG/2 ML SDV ONE (14:21)
[2020-06-08] MEDS ORDERED: Dexamethasone 4 MG/ML SDV ONE (14:21)
[2020-06-08] MEDS ORDERED: Succinylcholine 200 MG/10 ML MDV ONE (14:21)
--- NOTE | 2020-06-08 14:31 | US ---
Transvaginal Non OB, Pelvis Non OB Comp, VL Duplex Abd Pel Ret Ltd CLINICAL HISTORY: Pelvic pain, status post recent section FINDINGS: Real-time transabdominal and transvaginal images are obtained through the pelvis. Doppler was performed on both ovaries. Uterus measures 13.2 x 8.3 x 6.7 cm. The endometrium is distended with fluid and debris. The this correlates with CT findings. Right ovary measures 3.1 x 2.7 x 1.8 cm. Left ovary measures 3.0 x 2.3 x 1.4 cm. There is normal flow in both. Fluid in the cul-de-sac seen on CT is not identified on ultrasound IMPRESSION: Enlarged uterus with moderate to fluid and debris in the endometrial cavity Normal-appearing ovaries bilaterally
[2020-06-08] MEDS ORDERED: Meropenem 500 MG SDV ONE (15:04)
[2020-06-08] MEDS ORDERED: Ondansetron 4 MG/2 ML SDV IVPUSH PRN (15:49)
[2020-06-08] MEDS ORDERED: HYDROmorphone 1 MG/ML Syringe IV PRN (16:00)
[2020-06-08] MEDS ORDERED: HYDROmorphone 0.5 MG/0.5 ML Syringe IVPUSH PRN (16:00)
[2020-06-08] MEDS: Acetaminophen/HYDROcodone 325-5 MG Tab PO PRN (16:11)
[2020-06-08] MEDS: Dextrose 5%-Lactated Ringers 1,000 ML IV SCH (16:11)
[2020-06-08] MEDS: Meropenem 500 MG in Sodium Chloride 0.9% 50 ML IV SCH (19:48)
[2020-06-09] MEDS: Dextrose 5%-Lactated Ringers 1,000 ML IV SCH ×3 (00:25→22:44)
[2020-06-09] MEDS: Meropenem 500 MG in Sodium Chloride 0.9% 50 ML IV SCH ×4 (02:16→19:59)
[2020-06-09] MEDS: Acetaminophen/HYDROcodone 325-5 MG Tab PO PRN (04:17)
[2020-06-10] MEDS: Meropenem 500 MG in Sodium Chloride 0.9% 50 ML IV SCH ×2 (01:49→07:53)
[2020-06-10] MEDS ORDERED: Amoxicillin/Clavulanate K 875-125 MG Tab PO ONE (08:00)
[2020-06-10] MEDS ORDERED: Amoxicillin/Clavulanate K 875-125 MG Tab PO SCH ×2 (21:00)
--- NOTE | 2020-06-11 09:48 | PN ---
DATE OF SERVICE: 06/09/2020 The patient has been afebrile with stable vital signs. No major problems noted overnight, and has been feeling fairly good. White count normal at 15,000. The cultures are still pending. The Gram stain did show gram-negative rods, and she is on Azactam and meropenem. compatible with . We will likely be able to discharge her home tomorrow on oral antibiotics once we get the sensitivities back. José Manuel Santamaria MD /[id number]
--- NOTE | 2020-06-11 10:50 | DISCH ---
FINAL DIAGNOSES: Endometritis, status post recent section. OPERATIVE PROCEDURE: This was done on 06/08, dilation and curettage. SUMMARY: This is a 35-year-old status post a section done for polyhydramnios on 05/21/2020. She was doing well until the morning of admission, when she woke up with lower abdominal pain. Workup included a CT scan which showed a thickened endometrial stripe with some air within the uterus as well as uterine tubes. Small amount of free air was present intraperitoneally, likely emanating from the uterine tubes. She underwent dilation and curettage. Gram stain on that showed gram-negative rods. Cultures on that are pending. Clinically, she is doing well at this point and she is having no significant pain, and eating satisfactorily. Plan will be to discharge home on 8-day course of Augmentin 875 mg b.i.d. Otherwise, she will be continuing her usual home medications and follow up with Shy Bernal at [facility] will be on 06/14. She was instructed to call if she develops increased pain or fever in the ensuing days.
--- NOTE | 2020-06-17 10:30 | OR ---
DATE OF PROCEDURE: 06/08/2020 SURGEON: José Manuel Santamaria MD PREOPERATIVE DIAGNOSIS: Endometritis status post recent section. POSTOPERATIVE DIAGNOSIS: Endometritis status post recent section. OPERATIVE PROCEDURE: Uterine dilation and curettage status post recent section (24698). ANESTHESIA: General. INDICATION FOR PROCEDURE: A 35-year-old presenting with a picture of infection involving the area of the endometrial cavity. This was confirmed by imaging. Plan is to proceed with a dilation and curettage for drainage of fluid present within the endometrial cavity that is draining the area of the endometritis. Potential risks of the procedure including bleeding, infection, perforation of the uterus were reviewed, and the patient wishes to proceed. DETAILS OF PROCEDURE: The patient was taken to the operating room and after general endotracheal anesthesia was induced was placed in a lithotomy position. The urinary bladder was then emptied. The vaginal prep was performed. The cervix at this point was still fully dilated. A 1.5 cm uterine sound was then placed through the cervix. Some purulence was noted to emanate from that area and cultures were obtained using soft curettes, then the remainder of the uterine contents were removed passing the curettes more or less circumferentially until all additional fluid and blood were removed. At that point, no further problems were noted. The vaginal packing was placed and the patient was taken to the recovery room in satisfactory condition. There were no evident complications. José Manuel Santamaria MD /[id number]
== END 2020-06-10 10:00 | disposition home or self-care (01) | DRG 776 ==
LOC: JP.ED 11:00 → JP.SDS 14:04 → JP.ICU 14:35
PROVIDERS: ADMIT Surgery; ATTEND Surgery
PROC: 10D07Z8 Extraction of Products of Conception, Other, Via Natural or Artificial Opening (ICD-10-PCS; principal; 2020-06-08)
DX: O86.12 Endometritis following delivery (principal); Z20.828 Contact with and (suspected) exposure to other viral communicable diseases; Z79.899 Other long term (current) drug therapy; O99.63 Diseases of the digestive system complicating the puerperium; K21.9 Gastro-esophageal reflux disease without esophagitis
CPT/HCPCS: 36415; 74177; 74177-26; 76830; 76830-26; 76856; 76856-26; 80053; 83735; 84100; 85025; 85027; 87070; 87075; 87205; 93976; 93976-26; 96365; 96375; 99284; 99285-25; A9270-GY; J0330; J1100; J2185; J2405; J2704; J2710; J3010; J3490; J7040; J7120; J7121; Q9967; U0002